=== PATIENT | female | born 1995 | race Caucasian/White ===

== ENCOUNTER 2016-10-19 23:46 | Emergency (ER) | payer OTHER ==
[2016-10-19 23:50] VITALS: TEMP 97.5
[2016-10-19] MEDS ORDERED: IPRATROPIUM/ALBUTEROL 3 ML DEYVIAL ONE (23:53)
--- NOTE | 2016-10-20 00:29 | EDPHY ---
H & P Smoking Status: Never smoked Time Seen by Provider: 10/20/16 00:14 HPI/ROS: CHIEF COMPLAINT: Cough, shortness of breath HISTORY OF PRESENT ILLNESS: 21-year-old female presents to the emergency department with ongoing productive cough. The patient states that she was studying abroad in [place] 1 year ago and developed a cough. She was seen at a hospital in [place] was treated with antibiotics and was feeling better although continued to have an ongoing cough. She states over last 2 months especially she has had worsening cough and over the last 24 hours has felt more acutely short of breath. No known fevers or chills. She is describing right-sided rib pain especially when she coughs. She denies neck or back pain. She tried using her albuterol inhaler today multiple times without relief. REVIEW OF SYSTEMS: Constitutional: No fever, no chills. Eyes: No double or blurry vision. ENT: No sore throat. Respiratory: Cough, shortness of breath, right-sided rib pain as above Cardiac: No chest pain. Gastrointestinal: No abdominal pain, vomiting or diarrhea. Genitourinary: No dysuria. Musculoskeletal: No neck or back pain. Skin: No rashes. Neurological: No headache. (Yanet Patel) Past Medical/Surgical History: Asthma (HafsaYanet tseel) Social History: [employer] student (Jaci Patelisidoro Kohli) Physical Exam: General Appearance: Alert, no distress. 36.4, 100% on room air Eyes: Pupils equal and round. Extraocular motions are all intact. ENT: Mouth: Mucous membranes moist. Respiratory: No wheezing, rhonchi, or rales, lungs are clear to auscultation. Pain with palpation to the right anterior lateral aspect of her rib. No palpable crepitus or other bony abnormality. Cardiovascular: Regular rate and rhythm. Gastrointestinal: Abdomen is soft and nontender, no masses, no rebound or guarding, bowel sounds normal. Neurological: Alert and oriented x 3, cranial nerves II through XII grossly intact Skin: Warm and dry, no rashes. Musculoskeletal: Nontender to palpate along the cervical, thoracic or lumbar spine. Neck is supple. Extremities: Full range of motion and no peripheral edema. Psychiatric: Patient is oriented X 3, there is no agitation. (HafsaYanet steel) Constitutional: Initial Vital Signs Temperature (C) 36.4 C 10/19/16 23:47 Heart Rate 71 10/19/16 23:47 Respiratory Rate 20 10/19/16 23:47 Blood Pressure 171/96 H 10/19/16 23:47 O2 Sat (%) 100 10/19/16 23:47 O2 Delivery Mode Room Air Allergies/Adverse Reactions: Sulfa (Sulfonamide Antibiotics) Allergy (Verified 10/19/16 23:49) Home Medications: Medication Instructions Recorded Albuterol 10/19/16 Antihistamine 10/19/16 Zoloft 10/19/16 predniSONE 60 mg PO DAILY 4 Days 10/20/16 Medical Decision Making - Diagnostics Imaging: I viewed and interpreted images myself - Diagnostics Imaging Results: Chest x-ray reveals no obvious acute pulmonary disease. This is reviewed by myself the PAC system. Radiology interpretation to follow. (Yanet Patel) ED Course/Re-evaluation: 21-year-old female presents to the emergency department with chronic cough. The patient is afebrile. Her lungs are clear to auscultation in all [place]. I examined the patient after her DuoNeb. The patient was subjectively feeling much better. The patient describes her initial cough started over 1 year ago when she was studying abroad and has had intermittent URI symptoms since that time although worse over last 2 months and then became acutely worse over last 24 hours. No known ill contacts. No fevers or chills. The patient does not appear ill. She is not coughing actively in the room. The patient did benefit from albuterol nebulizer. She will be treated with oral steroids and referral to pulmonology. (Yanet Patel) PHYSICIAN DOCUMENTATION: The patient was evaluated and managed by the Physician Railroad Watchman. My co- signature indicates that I have reviewed this chart and I agree with the findings and plan of care as documented. I am the secondary supervising physician. (Rachel Mejia) Differential Diagnosis: Including but not limited to bronchitis, pneumonia, viral upper respiratory infection, influenza (Yanet Patel) - Data Points Medications Given: Discontinued Medications Prednisone (Prednisone) 60 mg PO EDNOW ONE Stop: 10/20/16 00:43 Last Admin: 10/20/16 00:52 Dose: 60 mg Departure - Departure Disposition: Home, Routine, Self-Care Clinical Impression: Chronic cough Condition: Good Instructions: Chronic Cough (ED) Additional Instructions: Prednisone 60mg daily for 5 days. Albuterol inhaler 2 puffs every 4 hours for one week and then as needed. Return if you develop a fever, recurring difficulty breathing, or if you feel worse in any way. Referrals: Geraldo Saravia MD [Medical Doctor] - As per Instructions (Drafter (Cad) Electronic on-call ) Prescriptions: predniSONE 60 mg PO DAILY 4 Days
[2016-10-20] MEDS ORDERED: predniSONE 20 MG TAB PO ONE (00:42)
[2016-10-20 01:05] VITALS: BP 124/74; PULSE 68; RESP 16; O2SAT 96
== END 2016-10-20 01:04 | disposition home or self-care (01) ==
DX: R05 Cough (principal); J45.909 Unspecified asthma, uncomplicated

== ENCOUNTER → 2017-09-15 | Outpatient (CLI) | payer OTHER ==
--- NOTE | 2017-09-15 11:15 | CPEKG ---
Heart Rate: 56 RR Interval: 1071 P-R Interval: 208 QRSD Interval: 84 QT Interval: 408 QTC Interval: 394 P Smallwood: 54 QRS Smallwood: 27 T Wave Smallwood: 24 EKG Severity - NORMAL ECG - EKG Impression: SINUS RHYTHM Electronically Signed By: Javier Aquino 15-Sep-2017 15:32:01
== END ==
LOC: FCP 10:50
DX: Z13.6 Encounter for screening for cardiovascular disorders (principal)